=== PATIENT | female | born 1970 | race Caucasian/White ===

== ENCOUNTER 2021-01-02 01:43 | Emergency (ER) | payer MEDICAID, SELFPAY ==
[2021-01-02 01:57] VITALS: BP 126/80; BP 130/84; PULSE 100; PULSE 95; RESP 18; TEMP 36.8; O2SAT 96; O2SAT 98; BMI 21.1
--- NOTE | 2021-01-02 04:40 | ED.GENADULT ---
HPI - General Adult General Chief complaint: General Medical Stated complaint: mentally health eval Time Seen by Provider: 01/02/21 02:07 History of Present Illness HPI narrative: Patient is 50 years old with a history of having back pain in the past. History of sciatica. Patient texted her friend telling her that she needs to talk to her. Her friend was concerned about her and called EMS. EMS on arrival sent the patient to the emergency department. To the paramedics patient denies any suicidal homicidal ideation. Denies to the providers that she has any homicidal suicidal ideations. She has pain that is going down her left leg. Patient denies any history of alcohol abuse. Patient denies any history of cocaine or heroin abuse. Patient claims the pain is worse with movement. It is sharp in nature. It goes down to the knees. It is similar to previous bouts of back pain she had. Patient denies any incontinence. Related Data Allergies Allergy/AdvReac Type Severity Reaction Status Date / Time No Known Allergies Allergy Unverified 03/11/20 14:58 Review of Systems Review of Systems: No fever no chills no bowel urinary incontinence no focal weakness Yes all other systems are reviewed and are negative [facility] Past Medical History Attestation statement: The following information was validated with the patient. Medical History Anxiety Depression Hypotension Social History Social History Advance Directives: No Patient : No Physical Exam Vital Signs: Vital Signs: Last Vital Signs Temp 98.3 F 01/02/21 01:57 Pulse 95 01/02/21 01:57 Resp 18 01/02/21 01:57 BP 126/80 01/02/21 01:57 Pulse Ox 98 01/02/21 01:57 Body Mass Index 21.1 Appearance: Alert. Oriented X3. No acute distress. Eyes: Pupils equal, round and reactive to light. ENT: Pharynx normal. Neck: Normal inspection. Neck supple. No lymph nodes noted. No crepitus CVS: Normal heart rate and rhythm. Pulses normal. Normal S1 and S2 Respiratory: No respiratory distress. Breath sounds normal. No Wheezing. No rales Abdomen: Soft and nontender. No rigidity. No distention. good BS x4 Skin: Skin warm and dry. Normal skin color. Normal skin turgor. Extremities: No lower extremity edema. Neurovascular intact to all extremities. No Lacerations. No Rash. There is good sensation in bilateral lower extremity. Negative straight leg raise test. Reflexes are equal at the patella bilaterally. Sensation in the lower extremity intact. Pulse 2 + at dorsalis pedis. Neuro: Oriented X 3. No motor deficit. No sensory deficit. Moving all extermities. No slurred speech Medical Decision Making MDM Narrative Medical decision making narrative: Patient had back pain excruciating at 1st patient claims she is unable to ambulate. She has no bowel urinary incontinence. She has pain associated with the sciatica. Patient denies any suicidal homicidal ideation. We will going to have patient get seen by social work along with physical therapy for further evaluation. However patient did not want to stay. She ambulated and eloped from the emergency department. Discharge Plan Discharge Clinical Impression: Sciatic leg pain Patient Disposition: Elopement Interventions: ED Discharge Assessment Last Done: 01/02/21 03:49 Discharge Date/Time: 01/02/21 03:50
== END 2021-01-02 03:50 | disposition left against medical advice (07) ==
PROVIDERS: Emergency Provider Emergency Medicine Emergency Medical Services
DX: M54.32 Sciatica, left side (principal)
CPT/HCPCS: 99283

== ENCOUNTER 2021-07-15 10:15 | Outpatient (RCR) | payer OTHER, SELFPAY ==
[2021-06-23 15:03] VITALS: BMI 21.1
--- NOTE | 2021-06-23 15:09 | PC.ADMIT ---
Patient admitted to [facility] on 06/23/2021. Patient self referred related to depression, anxiety and agitation. Patient reports history of two suicide attempts. patient denies SI during this assessment. Reviewed patient safety plan and with patient's permission will email copy to her. Patient reports she has stopped all opiate use and alcohol use since 05/05/2021. Patient states she needs [facility] for mental health issues related to her prior substance abuse. Patient states she goes to AA meetings four times a week. Patient reports the AA meetings have been very helpful. Patient reports she has out patient behavioral health services through her therapist, Keturah FULTON and her prescriber, Anne Foster NP. Patient has no history of inpatient psychiatric hospitalization. Patient has been in detox twice, once in 2019 and more recently in 2020 through [facility] in [place], [place]. All medications reconciled with pharmacy and patient.
--- NOTE | 2021-06-23 16:22 | PC.NURSE ---
Case opened in treatment team.
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
--- NOTE | 2021-06-27 11:49 | PC.NURSE ---
Tanja Robledo called and stated she has been having chest pain on and off for a week and thinks it is due to indigestion as she stated the chest pain is relieved by burping. She stated since she has been sober she has increased drinking carbonated beverages including seltzer water. I advised her to call her PCP to review or go to the emergency room to f/u. Patient stated she has slight chest pain currently, no SOB, no diaphoresis. Vidhi Schuler [employer] is aware.
--- NOTE | 2021-06-28 11:06 | HO.PHPPROGNO ---
Subjective Subjective Date of Service: 06/28/21 Reason For Visit: Depression, Anxiety, ADHD Interim History: I evaluated the pt this morning and upon interview she reports she has been adherent on adderall XR 10 mg for her ADHD and venlafaxine 75 mg for her sx of depression. Per pt, since she has quite drinking 7.5 weeks ago her mood has lifted tremendously. Pt is unsure if this is due to sobriety or if her medications are also more effective now that she is sober. Had been drinking 3-5 drinks a night 4-5 nights per week. She is now attending AA, which she finds helpful. Pt reports an incident of chest pain after taking adderall, however believes this was indigestion as it was temporary and has resolved with dietary changes. She also discussed her issues with bruxism and wondered if this is medication induced, however this seems unlikely as she has had this issue all my life, or at least medications are contributory but not the cause. Discussed possibly meeting with dentist to obtain a mouthguard. Pt also feels improvement overall since starting for severe menstrual pain, overall feels her medication regimen is working well. Medication Compliance: Yes Side effects from medications: No Attending Groups: Yes Review of Systems Acute medical concerns: No Medical Review of Systems: unchanged Mental Status Exam Mental Status Exam Narrative: Well-developed, well-nourished female, in NAD.? Appropriate grooming, appropriately dressed.? Sitting upright in chair, fully attentive during interview.? No involuntary movements noted, motor activity calm. Patient Appearance:?Well Groomed and Appropriate Patient Orientation:?Person, Place, Time and Situation Level of Consciousness:?Awake, Appropriate and Alert Patient Behavior:?Appropriate, Cooperative and Good Eye Contact Mood Description:?Depressed Affect Description:?Appropriate, Depressed and Anxious Patient Cognition Impaired:?No Ability to Follow Directions:?Excellent Speech Pattern:?Clear, Appropriate and Coherent Memory Description:?Intact Hallucinations:?None Delusions:?Not Present Thought Process:?Intact, Goal Oriented and Linear Thought Content:?positive for Intact, positive for Goal Oriented, positive for Linear and positive for Logical Depressive Symptoms:?Increased Anxiety, Diff. Making Decisions, Muscle Pain, Loss of Int. in Activity, Feelings of Worthlessness, Hopelessness, Feelings of Guilt, Increased Fatigue and Difficulty Concentrating Judgment and Insight:?Judgment and insight fair but adequate at this time. Diagnostics Vital Signs (24Hr): BMI result Body Mass Index 21.1 Assessment & Plan Assessment & Plan (1) Major depressive disorder, recurrent, moderate: Status: Acute Code(s): F33.1 - Major depressive disorder, recurrent, moderate Assessment and Plan: Pt reports positive benefit on current med regimen for sx of depression, feels stable, denies SI/SIB upon inquiry and says she feels safe. (2) Generalized anxiety disorder: Status: Acute Code(s): F41.1 - Generalized anxiety disorder (3) Alcohol use disorder, severe, in early remission: Status: Acute Code(s): F10.21 - Alcohol dependence, in remission Assessment and Plan: Pt has been sober 7.5 weeks and is attending AA. Denies urges to relapse. (4) Opioid use disorder, severe, in early remission: Status: Acute Code(s): F11.21 - Opioid dependence, in remission (5) ADHD: Status: Acute Code(s): F90.9 - Attention-deficit hyperactivity disorder, unspecified type Assessment and Plan: Pt has re-trialed Adderall XR 10 mg with her outpt provider and reports positive benefit. Continues to report issues with bruxism at night but does not appear to be side effect of adderall, as she had this issue prior to starting adderall. Assessment and Plan: Pt reports positive benefit on current med regimen and has been adherent with medications and appointments with her outpt psych provider. Does not want med changes. Does not need refills. 1. Continue current medications as prescribed by outpatient provider. 2. Continue with current PHP treatment plan. 3. Follow-up as per protocol. Certification I certify that partial hospital treatment is medically necessary due to the symptoms and problems resulting from the patient's mental illness and the failure to treat the patient at the partial hospital level of care would likely result in the patient requiring inpatient psychiatric care which could not be prevented at a less intensive level of care. I spent minutes with the patient and/or on the patient floor today, greater than?50% of which was spent counseling/coordinating care. Discharge Plan Discharge Attending provider: Mauro Shea Medications: No Action dextroamphetamine-amphetamine [Adderall XR] 10 mg capsule,extended release 24hr 10 mg PO DAILY RF: 0 alendronate 70 mg tablet 70 mg PO QWEEK RF: 0 aripiprazole 2 mg tablet 2 mg PO DAILY RF: 0 ferrous sulfate 325 mg (65 mg iron) tablet 325 mg PO 2XW RF: 0 gabapentin 300 mg capsule 600 mg PO BID RF: 0 norethindrone ac-eth estradiol [07/14 (21)] 1-20 mg-mcg tablet 1 tab PO DAILY RF: 0 lidocaine 5 % adhesive patch,medicated 1 patch topical DAILY RF: 0 lorazepam 0.5 mg tablet 1.5 tab PO BID PRN (Reason: Anxiety) RF: 0 tizanidine 4 mg tablet 4 mg PO TID PRN (Reason: Muscle Pain) RF: 0 venlafaxine 75 mg capsule,extended release 24hr 75 mg PO DAILY RF: 0
--- NOTE | 2021-07-05 09:47 | PC.NURSE ---
Patient called out sick today stating she has a migraine headache. Plans on returning to the program tomorrow.
--- NOTE | 2021-07-07 16:21 | HO.PHPPROGNO ---
Subjective Subjective Date of Service: 07/07/21 Reason For Visit: Depression, Anxiety, ADHD Guardianship: No Medical Problems Affecting Mental Status: No Interim History: Client describes her mood as ?pretty good ?. Reports continues with symptoms of depression and anxiety, although she feels she is slowly improving. No thoughts of harm to self or others, no safety concern at this time. Medication Compliance: Yes Side effects from medications: No Attending Groups: Yes Review of Systems Acute medical concerns: No Medical Review of Systems: unchanged Review of Systems Review of Systems Yes all other systems are reviewed and are negative Constitutional: Reports no additional constitutional complaints Mental Status Exam Mental Status Exam Narrative: Well-nourished, well-developed female, in NAD. Well groomed, appropriately dressed. No evidence of any type of intoxication or withdrawal symptoms, cravings noted or reported. No involuntary movements, no tics or tremors, motor activity calm. Client sitting up, fully attentive during encounter. Patient Appearance: Well Grooomed and Appropriate Patient Orientation: Person, Place, Time and Situation Level of Consciousness: Awake, Appropriate and Alert Patient Behavior: Appropriate, Cooperative and Good Eye Contact Mood Description: Appropriate, Depressed and Anxious Affect Description: Appropriate, Depressed and Anxious Patient Cognition Impaired: No Ability to Follow Directions: Excellent Speech Pattern: Clear, Appropriate and Spontaneous Speech Memory Description: Intact Hallucinations: None Delusions: Not Present Thought Process: Intact, Goal Oriented and Linear Thought Content: positive for Intact, positive for Goal Oriented, positive for Linear and positive for Logical Depressive Symptoms: Increased Anxiety, Diff. Making Decisions, Loss of Int. in Activity, Feelings of Worthlessness, Isolating-Friends/Family, Feelings of Guilt and Difficulty Concentrating Judgement: Fair Diagnostics Vital Signs (24Hr): BMI result Body Mass Index 21.1 Assessment & Plan Assessment & Plan (1) Major depressive disorder, recurrent, moderate: Status: Acute Code(s): F33.1 - Major depressive disorder, recurrent, moderate Assessment and Plan: Client reports she continues with some anxiety and depressive symptoms, although she does feel she is making improvement. She requested and received a script for calcium for 90 days, through her insurance, as she has recently stopped taking Fosamax per her MD instructions. She states that her primary care provider instructed her to start taking calcium OTC. It was explained to her that her her sure and provider may not cover script, as she can purchase this [id number]. She stated that she understood. Education for this medication was provided, including timing, take with meals, potential interactions, etc.. She denies any thoughts of harm to self or others at this time no safety concern. She reports that she feels the venlafaxine is helping. In review of her medications, she states that she no longer takes Abilify, as she did not find it effective. Otherwise she reports that her medications appear to be helping, and that the combination of medication and groups are helping her to learn how to better manage her depressive and anxiety symptoms. (2) Generalized anxiety disorder: Status: Acute Code(s): F41.1 - Generalized anxiety disorder (3) Alcohol use disorder, severe, in early remission: Status: Acute Code(s): F10.21 - Alcohol dependence, in remission Assessment and Plan: Client remains abstinent from alcohol at this time. Denies cravings at this time. (4) Opioid use disorder, severe, in early remission: Status: Acute Code(s): F11.21 - Opioid dependence, in remission (5) ADHD: Status: Acute Code(s): F90.9 - Attention-deficit hyperactivity disorder, unspecified type Assessment and Plan: Client had recently been restarted on Adderall in order to help with ADHD symptoms. She reports she is finding this helpful at this time. States she is more able to focus. Assessment and Plan: 1. Calcium carbonate 500 mg b.i.d., 90 day supply, sent to pharmacy. 2. Continue with current [facility] plan of care. 3. Follow-up as per protocol. Patient educated on: diagnosis, medication risk/benefits, substance abuse and therapeutic strategies Informed Consent: understands Reason for contiued partial hosp. stay Substantial Risk for: inability to function and med/psych decompensation Certification I certify that partial hospital treatment is medically necessary due to the symptoms and problems resulting from the patient's mental illness and the failure to treat the patient at the partial hospital level of care would likely result in the patient requiring inpatient psychiatric care which could not be prevented at a less intensive level of care. I spent minutes with the patient and/or on the patient floor today, greater than?50% of which was spent counseling/coordinating care. Discharge Plan Discharge Attending provider: Mauro Shea Medications: New calcium carbonate [Calcium 500] 500 mg calcium (1,250 mg) tablet,chewable 500 mg PO BID 90 Days Qty: 180 RF: 0 Discontinued aripiprazole 2 mg tablet 2 mg PO DAILY RF: 0 No Action dextroamphetamine-amphetamine [Adderall XR] 10 mg capsule,extended release 24hr 10 mg PO DAILY RF: 0 alendronate 70 mg tablet 70 mg PO QWEEK RF: 0 ferrous sulfate 325 mg (65 mg iron) tablet 325 mg PO 2XW RF: 0 gabapentin 300 mg capsule 600 mg PO BID RF: 0 norethindrone ac-eth estradiol [07/14 ()] 1-20 mg-mcg tablet 1 tab PO DAILY RF: 0 lidocaine 5 % adhesive patch,medicated 1 patch topical DAILY RF: 0 lorazepam 0.5 mg tablet 1.5 tab PO BID PRN (Reason: Anxiety) RF: 0 tizanidine 4 mg tablet 4 mg PO TID PRN (Reason: Muscle Pain) RF: 0 venlafaxine 75 mg capsule,extended release 24hr 75 mg PO DAILY RF: 0 Telehealth Telehealth Location of provider rendering services: practice address Location of patient: address on file Patient Identification confirmed using: Name, : Yes Telehealth method: video Patient verbally consented to treatment: Yes Patient verbally consented to billing insurance company: Yes Patient informed of any privacy concerns related to visit: Yes Time spent with patient (mins): 15
--- NOTE | 2021-07-13 15:52 | HO.PHPPROGNO ---
Subjective Subjective Date of Service: 07/13/21 Reason For Visit: Depression, Anxiety, ADHD Guardianship: No Medical Problems Affecting Mental Status: No Interim History: Lisa reports ?I a.m. doing well ?. States that she feels her mood has lifted, and that she feels much better. She feels stable for discharge later this week. No thoughts of harm to self or others, no safety concern. Reports she has remained abstinent from alcohol, and that she believes this has also helped lift her mood. Medication Compliance: Yes Side effects from medications: No Attending Groups: Yes Review of Systems Acute medical concerns: No Medical Review of Systems: unchanged Review of Systems Review of Systems Yes all other systems are reviewed and are negative Constitutional: Reports no additional constitutional complaints Mental Status Exam Mental Status Exam Narrative: Well-nourished, well-developed female, in NAD. No involuntary movements, no tics or tremors, motor activity calm. Patient Appearance: Well Grooomed and Appropriate Patient Orientation: Person, Place, Time and Situation Level of Consciousness: Awake, Appropriate and Alert Patient Behavior: Appropriate, Cooperative and Good Eye Contact Mood Description: Appropriate Affect Description: Appropriate Patient Cognition Impaired: No Ability to Follow Directions: Excellent Speech Pattern: Clear, Appropriate, Spontaneous Speech and Coherent Memory Description: Intact Hallucinations: None Delusions: Not Present Thought Process: Intact, Goal Oriented and Linear Thought Content: positive for Intact, positive for Goal Oriented, positive for Linear and positive for Logical Depressive Symptoms: Difficulty Concentrating Judgement: Good Diagnostics Vital Signs (24Hr): BMI result Body Mass Index 21.1 Assessment & Plan Assessment & Plan (1) Major depressive disorder, recurrent, moderate: Status: Acute Code(s): F33.1 - Major depressive disorder, recurrent, moderate Assessment and Plan: Lisa reports ?I a.m. doing well ?. States that she feels her mood has lifted, and that she feels much better. She feels stable for discharge later this week. No thoughts of harm to self or others, no safety concern. Reports she has remained abstinent from alcohol, and that she believes this has also helped lift her mood. (2) Generalized anxiety disorder: Status: Acute Code(s): F41.1 - Generalized anxiety disorder (3) Alcohol use disorder, severe, in early remission: Status: Acute Code(s): F10.21 - Alcohol dependence, in remission (4) ADHD: Status: Acute Code(s): F90.9 - Attention-deficit hyperactivity disorder, unspecified type Assessment and Plan: Client reports she is in process of titrating down lorazepam with outpatient provider. Questions whether or not she should be started on medication for ADHD. She had taken Adderall briefly, but stopped due to its side effects. A discussion was had, including medications such as Wellbutrin or Strattera. Discussed possibility of waiting for the time being as she is in process of titrating off lorazepam. Suggested that she wait until her body stabilizes, especially as she is also in early sobriety. She was in agreement with this. Assessment and Plan: 1. Continue with current medications as prescribed. 2. Client appears stable for discharge after this week. 3. Follow-up with outpatient providers going forward. Patient educated on: diagnosis, medication risk/benefits, substance abuse and therapeutic strategies Informed Consent: understands Reason for contiued partial hosp. stay Substantial Risk for: stable for discharge Certification I certify that partial hospital treatment is medically necessary due to the symptoms and problems resulting from the patient's mental illness and the failure to treat the patient at the partial hospital level of care would likely result in the patient requiring inpatient psychiatric care which could not be prevented at a less intensive level of care. I spent minutes with the patient and/or on the patient floor today, greater than?50% of which was spent counseling/coordinating care. Discharge Plan Discharge Attending provider: Mauro Shea Medications: New calcium carbonate [Calcium 500] 500 mg calcium (1,250 mg) tablet,chewable 500 mg PO BID 90 Days Qty: 180 RF: 0 Discontinued dextroamphetamine-amphetamine [Adderall XR] 10 mg capsule,extended release 24hr 10 mg PO DAILY RF: 0 aripiprazole 2 mg tablet 2 mg PO DAILY RF: 0 No Action alendronate 70 mg tablet 70 mg PO QWEEK RF: 0 ferrous sulfate 325 mg (65 mg iron) tablet 325 mg PO 2XW RF: 0 gabapentin 300 mg capsule 600 mg PO BID RF: 0 norethindrone ac-eth estradiol [Junel 07/14 ()] 1-20 mg-mcg tablet 1 tab PO DAILY RF: 0 lidocaine 5 % adhesive patch,medicated 1 patch topical DAILY RF: 0 lorazepam 0.5 mg tablet 1.5 tab PO BID PRN (Reason: Anxiety) RF: 0 tizanidine 4 mg tablet 4 mg PO TID PRN (Reason: Muscle Pain) RF: 0 venlafaxine 75 mg capsule,extended release 24hr 75 mg PO DAILY RF: 0 Stand Alone Forms: Patient Portal Discharge page Telehealth Telehealth Location of provider rendering services: practice address Location of patient: address on file Patient Identification confirmed using: Name, : Yes Telehealth method: video Patient verbally consented to treatment: Yes Patient verbally consented to billing insurance company: Yes Patient informed of any privacy concerns related to visit: Yes Time spent with patient (mins): 15
--- NOTE | 2021-07-13 16:07 | PC.NURSE ---
After speaking with pt, and at her request, I called [facility] and then emailed them a referral form with supporting documentation for pt to obtain a refinery operator vapor recovery unit. I spoke to Kyra at [facility] who said she does not believe there is a long wait for a refinery operator vapor recovery unit. I also left a message for Jeniffer Brown, recovery coaching management trainee program stores ([phone]).
--- NOTE | 2021-07-15 12:22 | PC.NURSE ---
Patient scheduled to discharge from the program today. Patient denied SI or any safety issues. Feels she is doing well and feels ready to discharge. Reviewed patient mediations with patient. Patient taking medications as prescribed. Stated she is no longer taking Tizantidine and is also on Venlafaxine 150 mg daily and is tapering down on Lorazepam. See medication list.
--- NOTE | 2021-07-15 14:07 | PC.NURSE ---
Spoke to patient about medicated assisted treatment at [place] [facility] and asked if she was interested. Patient interested and was provided the number to call and make an appointment.
--- NOTE | 2021-07-15 17:33 | PC.NURSE ---
I called and left a message for pt's therapist, Keturah Foster, [facility] ([phone]), letting her know about pt's successful discharge from [facility] today.
== END 2021-07-18 07:32 | disposition home or self-care (01) ==
LOC: HO.PHPA 10:15
PROVIDERS: Visit Provider Psychiatry & Neurology Psychiatry
DX: F33.1 Major depressive disorder, recurrent, moderate (principal); F41.1 Generalized anxiety disorder; F90.9 Attention-deficit hyperactivity disorder, unspecified type; F10.21 Alcohol dependence, in remission; F11.21 Opioid dependence, in remission; Z79.899 Other long term (current) drug therapy
CPT/HCPCS: 90791; 90853

== ENCOUNTER 2022-02-07 23:33 | Emergency (ER) | payer MEDICAID, SELFPAY ==
[2022-02-07 23:38] VITALS: BP 125/90; BP 130/60; PULSE 85; PULSE 86; RESP 18; TEMP 37.1; O2SAT 97; BMI 19.5
--- NOTE | 2022-02-07 23:39 | ED_ITS ---
HPI - Back Pain/Injury General Chief Complaint: Back Pain/Injury Stated Complaint: Back Pain Time Seen by Provider: 02/07/22 23:38 Source: patient Mode of arrival: ambulatory Limitations: no limitations History of Present Illness HPI Narrative: Patient with history of chronic back pain with sciatica head MRI 2 days ago report still pending comes here for pain in the left thigh area similar to that in the past for last 1 week getting worse no leg weakness no bladder or bowel involvement no recent injury Related Data Home Medications Medication Instructions Recorded Confirmed ferrous sulfate 325 mg (65 mg 325 mg PO 2XW 06/23/21 06/23/21 iron) tablet gabapentin 300 mg capsule 600 mg PO BID 06/23/21 06/23/21 lidocaine 5 % topical patch 1 patch topical DAILY 06/23/21 06/23/21 lorazepam 0.5 mg tablet 0.5 tab PO BID PRN Anxiety 06/23/21 07/14/21 norethindrone acetate 1 mg-ethinyl 1 tab PO DAILY 06/23/21 06/23/21 estradiol 20 mcg tablet (Junel) venlafaxine 75 mg capsule,extended 150 mg PO DAILY 06/23/21 07/14/21 release 24 hr cholecalciferol (vitamin D3) 50 50 mcg PO DAILY 07/14/21 07/14/21 mcg (2,000 unit) capsule (Vitamin D3) Previous Rx's Medication Instructions Recorded calcium carbonate 500 mg calcium 500 mg PO BID 90 days #180 tabs 07/07/21 (1,250 mg) chewable tablet (Calcium 500) tramadol 50 mg tablet 50 mg PO Q6H PRN pain #20 tabs 02/08/22 Allergies Allergy/AdvReac Type Severity Reaction Status Date / Time No Known Allergies Allergy Verified 02/07/22 23:41 Review of Systems Review of Systems: Yes all other systems are reviewed and are negative [facility] Past Medical History Medical History Anxiety Depression Fibroids History of iron deficiency Hypercholesteremia Hypotension Migraine Osteoporosis Sensorineural hearing loss, unspecified Surgical History History of endometrial ablation Hx of LASIK Social History Social History Household Members: None Household Members Other:: N/A Patient Tobacco Use Status: Former Tobacco user Tobacco use type: Cigarette Physical Exam Vital Signs: Vital Signs: Last Vital Signs Temp 98.6 F 02/08/22 00:00 Pulse 80 02/08/22 00:00 Resp 18 02/08/22 00:19 BP 105/70 02/08/22 00:00 Pulse Ox 97 02/08/22 00:00 O2 Del Method 02/08/22 00:00 BMI result Body Mass Index 19.5 Appearance: Alert. Oriented X3. No acute distress. ENT: Pharynx normal. Oral Mucosa moist Neck: Normal inspection. Neck supple. CVS: Normal heart rate and rhythm. Pulses normal. Respiratory: No respiratory distress. Equal air entry bilateral, no wheezing/rales/rhonchi Skin: Skin warm and dry. Normal skin color. Normal skin turgor. Extremities: No lower extremity edema. Back: Diffuse tenderness L4-L5 area SLR positive at 45 degrees on the left side neurovascular intact Neuro: Oriented X 3. No motor deficit Discharge Plan Discharge Clinical Impression: Sciatica Patient Disposition: Home, Self-Care Instructions: Sciatica (ED) Additional Instructions: Continue muscle relaxant as prescribed by PCP Apply ice Tramadol for severe pain Follow-up with your recruiting specialist Prescriptions: New tramadol 50 mg tablet 50 mg PO Q6H PRN (Reason: pain) Qty: 20 0RF No Action ferrous sulfate 325 mg (65 mg iron) tablet 325 mg PO 2XW Rx Instructions: Take on Sunday and Sunday. Take with Vitamin C gabapentin 300 mg capsule 600 mg PO BID Rx Instructions: Take two 300 mg tabs norethindrone ac-eth estradiol [07/14 (21)] 1-20 mg-mcg tablet 1 tab PO DAILY lidocaine 5 % adhesive patch,medicated 1 patch topical DAILY lorazepam 0.5 mg tablet 0.5 tab PO BID PRN (Reason: Anxiety) Rx Instructions: Patient stated she is tapering off Lorazepam. Currently taking 0.5 mg BID. When finished with that prescription she will start taking 0.5 mg Daily. venlafaxine 75 mg capsule,extended release 24hr 150 mg PO DAILY Rx Instructions: Patient stated she takes 2 tabs daily for a total dose of 150 mg daily. calcium carbonate [Calcium 500] 500 mg calcium (1,250 mg) tablet,chewable 500 mg PO BID 90 Days Qty: 180 0RF cholecalciferol (vitamin D3) [Vitamin D3] 50 mcg (2,000 unit) Capsule 50 mcg PO DAILY
[2022-02-08] VITALS: BP 105/70; PULSE 80; TEMP 37; O2SAT 97
[2022-02-08 00:19] VITALS: RESP 18
[2022-02-08] MEDS: Morphine Sulfate 4 MG/ML CARTRIDGE IM ×2 (00:19→01:22)
[2022-02-08 01:22] VITALS: RESP 20
[2022-02-08] MEDS: dexAMETHasone sod phosphate 4 MG/ML VIAL 8 MG IM (01:22)
== END 2022-02-08 02:48 | disposition home or self-care (01) ==
PROVIDERS: Emergency Provider Internal Medicine; PCP Nurse Practitioner Family
DX: M54.42 Lumbago with sciatica, left side (principal)
CPT/HCPCS: 96372; 99283; 99284; J1100; J2270

== ENCOUNTER 2022-02-09 11:50 | Emergency (ER) | payer MEDICAID, SELFPAY ==
[2022-02-09 12:06] VITALS: BP 104/56; BP 160/84; PULSE 69; PULSE 88; RESP 20; TEMP 37.3; O2SAT 97; O2SAT 98; BMI 19.5
--- NOTE | 2022-02-09 12:18 | ED.GENADULT ---
HPI - General Adult General Chief complaint: General Medical Stated complaint: LOW BACK PAIN Time Seen by Provider: 02/09/22 14:24 Source: patient Mode of arrival: ambulatory Limitations: no limitations History of Present Illness HPI narrative: 51-year-old female with history of lumbar disc herniation presents to ED for continuous back pain. Patient denies any urinary/bowel incontinence. Patient states having pain for couple of days was seen here and prescribed tramadol still having pain. Patient states primary care provider informed of this pain back pain and patient taking Motrin with tramadol and not helping. Patient denies any dysuria, hematuria, abdominal pain, nausea, or vomiting. Patient states she had MRI this past Sunday and is presently follow-up with spinal surgery who she spoke to stating she might need surgery down the line after he reviewed MRI. Patient denies any active IV drug use or immunocompromise diseases. Patient denies any recent trauma. Related Data Home Medications Medication Instructions Recorded Confirmed ferrous sulfate 325 mg (65 mg 325 mg PO 2XW 06/23/21 06/23/21 iron) tablet gabapentin 300 mg capsule 600 mg PO BID 06/23/21 06/23/21 lidocaine 5 % topical patch 1 patch topical DAILY 06/23/21 06/23/21 lorazepam 0.5 mg tablet 0.5 tab PO BID PRN Anxiety 06/23/21 07/14/21 norethindrone acetate 1 mg-ethinyl 1 tab PO DAILY 06/23/21 06/23/21 estradiol 20 mcg tablet (Junel) venlafaxine 75 mg capsule,extended 150 mg PO DAILY 06/23/21 07/14/21 release 24 hr cholecalciferol (vitamin D3) 50 50 mcg PO DAILY 07/14/21 07/14/21 mcg (2,000 unit) capsule (Vitamin D3) Previous Rx's Medication Instructions Recorded calcium carbonate 500 mg calcium 500 mg PO BID 90 days #180 tabs 07/07/21 (1,250 mg) chewable tablet (Calcium 500) tramadol 50 mg tablet 50 - 100 mg PO Q4H PRN pain #20 02/08/22 tabs tramadol 50 mg tablet 50 - 100 mg PO Q4H PRN pain #20 02/08/22 tabs cyclobenzaprine 10 mg tablet 10 mg PO TID PRN muscle spasm 5 02/09/22 days #15 tabs ketorolac 10 mg tablet 10 mg PO QID 5 days #20 tabs 02/09/22 prednisone 20 mg tablet 60 mg PO DAILY 5 days #15 tabs 02/09/22 Allergies Allergy/AdvReac Type Severity Reaction Status Date / Time No Known Allergies Allergy Verified 02/07/22 23:41 Review of Systems Review of Systems: Chronic back pain exacerbation Yes all other systems are reviewed and are negative [facility] Past Medical History Medical History Anxiety Depression Fibroids History of iron deficiency Hypercholesteremia Hypotension Migraine Osteoporosis Sensorineural hearing loss, unspecified Surgical History History of endometrial ablation Hx of LASIK Social History Social History Household Members: None Household Members Other:: N/A Patient Tobacco Use Status: Former Tobacco user Tobacco use type: Cigarette Advance Directives: No Advance Directives Information Provided: No Physical Exam ED Vital Signs: Vital Signs - 24 hr 02/09/22 12:06 Temperature 99.1 F Pulse Rate 69 Respiratory Rate 20 Blood Pressure 104/56 L Pulse Oximetry 97 Oxygen Delivery Method Room Air BMI result Body Mass Index 19.5 Const General: cooperative, healthy appearing, comfortable, no acute distress, well developed, alert, awake and Physically active Orientation/consciousness: patient oriented x3 HENMT Head: Yes normal to inspection, Yes No palpable skull fracture present, Yes normocephalic, Yes atraumatic and No abrasion Eyes General: appearance normal, both eyes and all related structures Neck Neck: Yes normal visual inspection, Yes full ROM, Yes no lymphadenopathy, Yes no meningeal signs, Yes trachea midline, Yes supple, No anterior neck swelling and No tender Chest Chest palpation & inspection: normal inspection of the chest and normal palpation of entire chest wall Resp Effort & Inspection: normal respiratory effort and able to speak in complete sentences Auscultation: clear to auscultation bilaterally Cardio Jugular venous distension: no JVD Heart sounds: S1 normal heart sound present and S2 normal heart sound present GI Inspection: Yes normal to inspection and No abdominal wall ecchymosis Palpation (GI): Soft to palpation, not firm, nontender, no guarding and not rigid General: No CVA tenderness and Yes no CVA tenderness Back/Spine/Pelvis Back: no CVA tenderness, No CVA tenderness and back tenderness (Lumbar spine tenderness) Skin General skin exam: no rashes or lesions noted and elasticity normal Neuro General: patient oriented x3, gait normal, no meningeal signs and CN's II-XI intact bilaterally Cranial nerves: Yes CN's II-XII intact bilaterally Extrem Other: Complete range of motion of lower extremity General: Yes normal to inspection and Yes full ROM Psych Appearance: grossly normal, well kempt and not disheveled Course Course Course Narrative: Presently no indication for new imaging. Patient denies any recent trauma. Not suspecting cauda equine or epidural abscess. Pain control. Reevaluation(s) Reevaluation #1: Patient feels better after receiving Toradol, osycodone, and steroids. Patient will follow-up with this spine surgeon and PCP. Patient informed not to take any other NSAIDs since she was prescribed Toradol. Patient prescribed steroids also. patient walked to bathroom back and forth. Patient's spinal surgeon office was called inquiring about MRI results but they could not be reached. Presently history physical exam does not indicate epidural abscess or cauda equina syndrome. Patient is safe for discharge. Patient walk around the ER. Gait normal Time: 22:34 Medical Decision Making MDM Narrative Medical decision making narrative: Lumbar disc herniation Discharge Plan Discharge Clinical Impression: Herniated intervertebral disc of lumbar spine Patient Disposition: Home, Self-Care Instructions: Lumbar Disc Herniation (ED) Additional Instructions: Stop taking any other NSAIDs. You will be discharged with Toradol. You also be discharged with steroids. Return to the ED immediately for any urinary/bowel incontinence, paralysis of lower extremities, inability to walk, abdominal pain, dysuria, hematuria, flank pain, fever, chills, nausea, vomiting, or any other concerning symptoms. Do not take tramadol at the same time with muscle relaxer. Please follow immediately with your primary care or spine surgeon as soon as possible. Prescriptions: New ketorolac 10 mg tablet 10 mg PO QID 5 Days Qty: 20 0RF Rx Instructions: Patient received 30mg IM toradol in the ED prednisone 20 mg tablet 60 mg PO DAILY 5 Days Qty: 15 0RF cyclobenzaprine 10 mg tablet 10 mg PO TID PRN (Reason: muscle spasm) 5 Days Qty: 15 0RF Rx Instructions: side effect is drowsiness. Do not at work or while driving. No Action ferrous sulfate 325 mg (65 mg iron) tablet 325 mg PO 2XW Rx Instructions: Take on Sunday and Sunday. Take with Vitamin C gabapentin 300 mg capsule 600 mg PO BID Rx Instructions: Take two 300 mg tabs norethindrone ac-eth estradiol [07/14 (21)] 1-20 mg-mcg tablet 1 tab PO DAILY lidocaine 5 % adhesive patch,medicated 1 patch topical DAILY lorazepam 0.5 mg tablet 0.5 tab PO BID PRN (Reason: Anxiety) Rx Instructions: Patient stated she is tapering off Lorazepam. Currently taking 0.5 mg BID. When finished with that prescription she will start taking 0.5 mg Daily. venlafaxine 75 mg capsule,extended release 24hr 150 mg PO DAILY Rx Instructions: Patient stated she takes 2 tabs daily for a total dose of 150 mg daily. calcium carbonate [Calcium 500] 500 mg calcium (1,250 mg) tablet,chewable 500 mg PO BID 90 Days Qty: 180 0RF cholecalciferol (vitamin D3) [Vitamin D3] 50 mcg (2,000 unit) Capsule 50 mcg PO DAILY tramadol 50 mg tablet 50 - 100 mg PO Q4H PRN (Reason: pain) Qty: 20 0RF tramadol 50 mg tablet 50 - 100 mg PO Q4H PRN (Reason: pain) Qty: 20 0RF Stand Alone Forms: Work/School Release Interventions: ED Discharge Assessment Last Done: 02/09/22 15:00 Discharge Date/Time: 02/09/22 15:01 Print Language: Omani
[2022-02-09] MEDS: Ketorolac Tromethamine 30 MG/ML VIAL IM (13:00)
[2022-02-09] MEDS: predniSONE 20 MG TABLET 60 MG PO (13:01)
[2022-02-09] MEDS: oxyCODONE HCl Immed Release 5 MG TABLET PO (13:01)
== END 2022-02-09 15:01 | disposition home or self-care (01) ==
PROVIDERS: Emergency Provider Emergency Medicine Emergency Medical Services; PCP Nurse Practitioner Family
DX: M51.26 Other intervertebral disc displacement, lumbar region (principal); M54.50 Low back pain, unspecified
CPT/HCPCS: 96372; 99283; 99284; J1885

== ENCOUNTER 2025-06-08 04:57 | Emergency (ER) | payer OTHER, SELFPAY ==
--- OUTSIDE RECORDS SUMMARY | 2024-09-15 04:15 | XMS_ITS ---
Author Organization [facility] [place] Address [address] [facility] [place] [address] Care Team Providers Care Manager Construction Name Role Phone Tess CONRAD, Quinn Primary Care Provider Unava lillie Joaquin, Laina Unavailable [phone] Stack Encounters Encounter Location Date Provider Diagnosis [facility] [address] [facility] [place] [place] [address] 09/15/2024 Laina Joaquin Plan Of Treatment No Information Progress Notes * Antonio ROJASRitaOB: [birth year] (54 yo F)Acc No.[id number]:09/15/2024 Patient: Olga WATERMAN Provider: Faizan Joaquin DPM :1970 A ge:53 Y S ex:Female Date:09/15/2024 Address:[address] [place], [place] [address]Jenn [id number] Pcp:Quinn Pulido MD Subjective: * Chief Complaints: * [address] Stack[address] * Medical History: Objective: * Vitals: Assessment: Plan: * Treatment: * Images: * The named appointment provid er may or may not be the originator of this progress note, and it is not deemed complete until electronically signed by the appointment provider. Sign off status: Pending * Provider: Faizan Joaquin DPM Date: 0 09/15/2024 Generated for Printi ng/Faxing/eTransmitting on: 08/09/2024 06:06 AM EST
--- OUTSIDE RECORDS SUMMARY | 2024-09-22 04:15 | XMS_ITS ---
Author Organization [facility] [place] Address [address] [place] [address] Care Team Providers Care Nurse Unit Manager Name Role Phone Tess CONRAD, Quinn Primary Care Provider Laina Callahan [phone] Encounters Encounter Location Date Provider Diagnosis [facility] [address] [facility] [place] [address] 09/22/2024 Laina Joaquin Plan Of Treatment No Information Progress Notes * Antonio ROJASRitaOB: [birth year] (54 yo F)Acc No.[id number]:09/22/2024 Patient: Olga WATERMAN Provider: Faizan Joaquin DPM :1970 A ge:53 Y S ex:Female Date:09/22/2024 Address:[address] [place] [address] Jenn [place] [id number] Pcp:Quinn Pulido MD Subjective: * Chief Complaints: * * Medical History: Objective: * Vitals: Assessment: Plan: * Treatment: * Images: * The named appointment provid er may or may not be the originator of this progress note, and it is not deemed complete until electronically signed by the appointment provider. Sign off status: Pending * Provider: Faizan Joaquin DPM Date: 0 09/22/2024 Generated for Janyi ng/Faradhag/eTransmitting on: 1 08/09/2024 06:07 AM EST
[2025-06-08 05:04] VITALS: BP 108/45; PULSE 68; RESP 16; TEMP 36.4; O2SAT 97
[2025-06-08 05:08] VITALS: BP 140/90; PULSE 68; O2SAT 98; BMI 23.7
--- NOTE | 2025-06-08 05:25 | PC.NURSE ---
Pt JORDAN from home c/o bladder pain. Pt states she woke up this morning feeling pain in her bladder and was unable to void. Pt states, I only remember waking up on the bathroom floor but denies any headstrike. Bladder scan shows no urine. 20 g IV in left hand from EMS.
--- OUTSIDE RECORDS SUMMARY | 2025-06-08 06:06 | XMS_ITS | Encounter Summary ---
Author Organization [facility] Address [address] [place] [phone] Phone Care Team Providers Care Insurance Coder Name Role Phone Kathie Novak NP Primary Care Provide r Reason for Referral * MRI/CAT Scan - Closed Specialty Diagnoses / Procedures Referred By Shay wing Referred To Contact Radiology Diagnoses Sensorineural hearing loss, bilateral Procedures MRI Brain Rylan Cruz MD Phone: tel: fax: [email or web address] Referral ID Status Reason Start Date Expiration Date Visits Re quested Visits Authorized [id number] Closed 05/19/2020 05/19/2021 1 1 Encounter Details Date Type Department Care Team (Latest Contact Info) Description 05/19/2020 Ancillary Orders Virtual Department [address] [place] [id number] Rylan Cruz MD [address] [place] [address] [address] [place] [address] [email or web address] Sensorineural hearing loss, bilateral Social History Tobacco Use Types Packs/Day Years Used Date Smoking Tobacco: Never Assessed Comments Unknown Sex and Gender Information Value Date Recorded Sex Assigned at Not on file Legal Sex Female 10:40 AM EST Gender Identity Female 06/01/2020 11:07 PM EST Sexual Orientation Straight 06/01/2020 11 :07 PM EST documented as of this encounter Plan of Treatment Not on file documented as of this encounter Results * MRI BRAIN WITH AND WITHOUT CONTRAST (06/02/2020 11:28 AM EST) Anatomical Region Laterality Modality Head Magnetic Resonan ce 06/02/2020 12:2 2 PM EST Impressions 06/02/2020 12:28 PM EST No evidence of acoustic neuroma or other significant intracranial pathology. POS - [id number] Narrative 06/02/2020 12:28 PM EST TECHNIQUE: Exam performed on a 1.5 Zahra high-field MRI scanner. Axial T2, T2 FLAIR, T2 GRE, diffusion-weighted imaging with ADC map, and sagittal T1 of the whole brain, thin section axial T1, and 3-D axial high resolution bright fluid through the region of the IACs, followed by post-gadolinium axial T1 of the whole brain and post-gadolinium thin section axial and coronal T1 through the region of the IACs. FINDINGS: There is no evidence of acoustic neuroma. No cerebellopontine angle mass. No evidence of acute ischemia or previous intracranial hemorrhage. Brain parenchyma displays essentially normal curry-white matter signal intensity, distribution, and enhancement characteristics. Ventricles and cerebral sulci are within normal limits in size. Cerebellar tonsils are not ectopic. No discrete orbital lesion identified. No pathologic fluid collections are demonstrated in the mastoid air cells. No gross orbital lesion. Flow-voids appear to be preserved in the major intracranial arteries at the base. Procedure Note Rafael Cisneros MD - 06/02/2020 TECHNIQUE: Exam performed on a 1.5 Zahra high-field MRI scanner. AxialT2, T2 FLAIR, T2 GRE, diffusion-weighted imaging with ADC map, andsagittal T1 of the whole brain, thin section axial T1, and 3-D axial highresolution bright fluid through the region of the IACs, followed bypost-gadolinium axial T1 of the whole brain and post-gadolinium thinsection axial and coronal T1 through the region of the IACs. FINDINGS: There is no evidence of acoustic neuroma. No cerebellopontine angle mass.No evidence of acute ischemia or previous intracranial hemorrhage. Brainparenchyma displays essentially normal curry-white matter signal intensity,distribution, and enhancement characteristics. Ventricles and cerebralsulci are within normal limits in size. Cerebellar tonsils are notectopic. No discrete orbital lesion identified. No pathologic fluidcollections are demonstrated in the mastoid air cells. No gross orbitallesion. Flow-voids appear to be preserved in the major intracranialarteries at the base. IMPRESSION: No evidence of acoustic neuroma or other significant intracranialpathology. POS - [id number] Rylan Cruz MD IMG MR HEAD/NECK Final Re sult documented in this encounter Visit Diagnoses Diagnosis Sensorineural hearing loss, bilateral Sensorineural hearing loss, bilateral documented in this encounter Care Teams Insurance Coder Relationship Specialty Start Date End Date Kathie Novak NP [address] [place] [address] PCP - General Family Medicine 05/27/20 documented as of this encounter Additional Source Comments The information contained in this document represents components of the legal health record. It is not the complete legal health record.[facility]
--- OUTSIDE RECORDS SUMMARY | 2025-06-08 06:06 | XMS_ITS | Encounter Summary ---
Author Organization [facility] Address [address] [place] [phone] Phone Care Team Providers Care Director Post Name Role Phone Kathie Novak NP Primary Care Provide r Encounter Details Date Type Department Care Team (Late st Contact Info) Description 05/19/2020 Procedure Pass [address] [place] [address] Social History Tobacco Use Types Packs/Day Years [...] on file documented as of this encounter Visit Diagnoses Not on filedocumented in this encounter Care Teams Director Post Relationship Specialty Start Date End Date Kathie Novak NP [address] [place] [address] [place] [address] PCP - General Family Medicine 05/27/20 documented as of this encounter Additional Source Comments The information contained in this document represents components of the legal health record. It is not the complete legal health record.[facility]
--- OUTSIDE RECORDS SUMMARY | 2025-06-08 06:07 | XMS_ITS | Data Portability ---
Author Organization [place] - [facility] Address [address] [place] [phone] Care Team Providers Care Consular Officer Name Role Phone [facility] Primary Care Pro vider Assessment Encounter Date Assessment Date Assessment LastModified by Organization Details LastModified Time 01/01/2021 01/01/2021 Overview/History : 50 y/o F with PMHx sig for depression, anxiety, and [place], new to , who presents w/ c/o stabbing back pain. Patient reports left sided back/buttock pain started about 6 weeks ago and has been barely tolerable with Ibuprofen 800 mg. She reports worsening pain recently and now pain radiates down her left leg. She reports an old injury and has had 2 flare ups of sciatica in the past due to this. She states that usually it resolves with ibuprofen and time but pain is getting worse. Denies any new injury, heavy lifting, or twisting. She tried seeing a chiropractor 3 times and states it worsened after the last visit. Pain is worsened with certain positions as well as coughing or sneezing. Exam: afebrile, RRR, normotensive, normal resps, O2 sat 98% on RA, non-toxic, uncomfortable appearing. GENERAL: well developed, well nourished, appears stated age, walking and sitting uncomfortably in no acute distress. RESP: normal I:E, breathing non-labored, no accessory muscle use, clear to auscultation bilaterally, no wheezes, rhonchi, or rales. CARDIO: RRR, normal S1, S2, no murmurs, rubs, or gallops. MUSK: intervertebral space between L5-S1 TTP, otherwise no spinal or paraspinal tenderness or step offs, bilateral SI joints nontender, left upper buttocks TTP, +straight leg raise on the left, active ROM of spine limited due to pain, normal strength, muscle tone, no atrophy. NEURO: awake, alert, oriented x3, no focal neuro deficits, moving all extremities spontaneously, antalgic gait. DDx considered, but not limited to: sciatica - likely, has h/o this, +straight leg raise CE - unlikely, sxs unilateral, no numbess, weakness, or saddle anesthesia sacroilitis - less likely, SI joints nontender spinal abscess - unlikely, denies IVDU, afebrile, spine nontender low back strain - unlikely, denies injury, paraspinal muscles nontender vertebral fracture -unlikely, no vertebral tenderness Work up/Results: physical exam. Plan/Discussion: -acute on chronic sciatica -gave Toradol 15 mg IM in left deltoid aseptically on scene at 15:55, patient tolerated procedure well without complication -Rx sent for Naproxen 500 mg BID x7 day, first dose not until after midnight -No OTC NSAIDS while taking these medications -Avoid bed rest, no heavy lifting, twisting, or bending -keep PT referral as scheduled -f/u with PCP -call if sxs persist or worsen, can consider PO steroid if appropriate at that time [facility]. We cannot always find the exact cause of your symptoms during your initial visit. Please follow up with your primary care provider or specialist to be rechecked or seek medical attention if your symptoms do not go away or get worse. If you develop any new or worsening symptoms and need after hours care, please go to nearest ER and/or call 911. If you have additional concerns or develop a change in your condition between 8am-10pm, please call [facility] at [phone] to help navigate your care. In order to obtain further information and compare any laboratory results/values, I have accessed patient records on the [employer]. This information was pertinent in my medical decision making today. [email or web address] Not available 01/01/2021 16:31:43 01/09/2021 01/09/2021 Overview/History :T is a 50-year-old female that [place] for further evaluation regarding acute on chronic sciatic pain. She was given a prescription for naproxen. She has been taking the some of the time but has not had any in the past 24 hours. She is following with her primary care for her sciatic pain and has been referred to physical therapy. She just had her first intake session 2 days ago. She also believes she has a poison cammy rash after hiking near her home. Exam: On exam patient is awake and alert she is afebrile and hemodynamically stable. She is ambulating by her home with a steady gait. She does have red raised blister like rash on right forearm that does appear consistent with a poison cammy rash. She has skin patches on her left forearm as well. DDx considered, but not limited to:Back pain is most likely due to previously diagnosed acute on chronic sciatica back pain. Cauda equina unlikely at this time as patient denies saddle numbness or incontinence. Patient denies any recent trauma. Pinch nerve is also possible. The rash on forearms does appear consistent with poison cammy dermatitis. Contact dermatitis of other origin also considered. Work up/Results: Plan/Discussion:I discussed with the patient that she is presently receiving all appropriate treatments for her sciatic pain. I have advised that she resume her naproxen because that was helping somewhat and that she take it on a more regular schedule for at least the next 1-2 weeks. I have asked her to discuss with her physical therapist continuing treatment with her chiropractor. She does have an appointment there primary care next week. I have advised that she keep this in-person appointment and they can discuss the possibility of advanced imaging at that time. In regards to her rash. I did instruct her to parts picker some tecnu poison cammy wash from the pharmacy. I also discussed with her the oil from poison cammy can live on surfaces for over a year. I did remind her that when she goes to wash her linens and clothing that have already come in contact with the coils from her rash that she should wear gloves and wash linen in hot water. I also advised her to keep her rash areas covered if possible to resists the urge to itch and cause additional spread. I have also given her a prescription for topical hydrocortisone cream. I did let her know that if the rash were to spread or should begin to get blisters that she may need steroids at that time and she should contact [facility] or her PCP for reevaluation. In order to obtain further information and compare any laboratory results/values, I have accessed old patient records. This information was pertinent in my medical decision making today. Time On Scene with Patient: 00:32:51 [email or web address] Not available 01/09/2021 11:41:53 02/15/2021 02/15/2021 Overview/History : 1 week of cloudy malodorous urine. 3 weeks ago fell in bathroom onto right shoulder, continues to have pain with ABduction. Exam: WDWN non-toxic 50 yr old female VSS DDx considered, but not limited to: Urinary tract infection, doubtful for pyelonephritis no F/C/N/V o CVA tenderness. Right shoulder: DDx: Contusion, no ecchymosis, no edema, ROM is full with some tenderness on ABduction over the deltoid area. Doubtful for fracture, rotator cuff as rom is full, and strength is 5/5 Work up/Results: Urine dip positive for leukocytes, blood, 2+ ketones, 1+ protein right shoulder clinically evaluated Plan/Discussion: Non-toxic well appearing female with UTI, push fluids, begin Macrobid 100 mg BID x7 days call if any changes/concerns. your urine culture should be back in 2 days we will forward to your patient portal with any changes that may be necessary Go ahead and reach out to PT for your right shoulder. You have mentioned you already have a referral. Do ROM exercises as discussed. In order to obtain further information and compare any laboratory results/values, I have accessed . This information was pertinent in my medical decision making today. Proper Personal Protective Equipment (PPE), including gloves and masks were donned and doffed appropriately and all equipment cleaned using approved technique with germicidal disposable wipes prior to and after care of this patient according [facility]. Time On Scene with Patient: 00:32:53 [email or web address] Not available 02/15/2021 20:19:15 Plan of Treatment Reminders Order Date Submit Date Provider Last Modified By Organization Details Last Modified Time Details Appointments None recorded. Lab urinalysis , dipstick 2020 021 [facility], [address] [place] [address], [phone], 18:36:27 culture, urine 2020 YARELIS [facility] (Centralized Electronic Ordering - All Locations), Patient Can Go To The Location Of Their Choice, [id number] 13:08:09 Referral None recorded. Procedures None recorded. Surgeries None recorded. Imaging None recorded. Medication Orders Macrobid 100 mg capsule 2020 ATHENAFAX [facility] #[id number], [address] [place], [address], 18:40:07 hydrocorti sone 2.5 % topical cream 2020 DBA_PATCH_ [id number] [facility] #[id number], [address] [place], [address], 10:13:52 ketorolac 30 mg/mL (1 mL) injection solution 2020 [email or web address] [facility] #[id number], [address] [place], [address], 17:27:58 naproxen 500 mg tablet 2020 DBA_PATCH_ [id number] [facility] #[id number], [address] [place], [address], 10:13:52 Patient TargetsNo targets recorded. Patient Instructions Encounter Date Encounter Id Patient Instructions Last Modified By Organization Details Last Modified Time 01/09/2021 [id number] WE CAME TO SEE [facility] TODAY FOR CONCERNS OF ACUTE ON CHRONIC SCIATICA, YOU ARE ALREADY TAKING ANTI INFLAMMATORIES (NAPROXEN) , YOU ARE ALSO IN PHYSICAL THERAPY WHICH IS GREAT, PLEASE FOLLOW UP WITH PRIMARY CARE YOU ARE PLANNING TO TO DISCUSS POSSIBILTY OF ADVANCED IMAGING YOU ARE ALSO REPORTING A RASH FROM POINSON CAMMY, I RECCOMEND USING A MEDICATED POISON CAMMY WASH CALLED TECHNU- YOU CAN GET THIS AT ANY PHARMACY, THIS HELPS GET RID OF THE OIL WHICH IS WHAT CAUSES THIS TO SPREAD, I AM SENDING SOME HYDROCORTISONE CREAM TO THE PHARMACY FOR YOU- NO NEED FOR ORAL STEROIDS AT THIS TIME, IF THE RASH SPREADS OR YOU DEVELOPE BLISTERS IT FOLLOW UP WITH US OR YOUR PCP [facility]. We cannot always find the exact cause of your symptoms during your initial visit. Please follow up with your primary care provider or specialist as needed to be rechecked or seek medical attention if your symptoms do not go away or get worse. If you develop any new or worsening symptoms and need after hours care, please go to nearest ER and/or call 911. If you have additional concerns or develop a change in your condition between 8am-10pm, please call [facility] at [phone] to help navigate your care. [email or web address] Not available 01/09/2021 11:26:17 02/15/2021 [id number] shoulder stretches: exercises [email or web address] Not available 02/15/2021 18:36:30 shoulder pain: care instructions [email or web address] Not available 02/15/2021 18:36:32 shoulder sprain: care instructions [email or web address] Not available 02/15/2021 18:36:33 Female Urinary Tract Infection (UTI): Care Instructions [email or web address] Not available 02/15/2021 18:36:31 Please follow up with your primary care provider or specialist within 24-48 hours to be rechecked or seek medical attention if your symptoms do not go away or get worse. If you have additional concerns or develop a change in your condition between 8am-10pm, please call [facility] at [phone] to help navigate your care. Cross Tie Turner forward with your referral to PT [email or web address] Not available 02/15/2021 18:38:33 Reason for Referral None Reported. Results Created Date Observation Date Name Description Value Unit Range Abnormal Flag Note LastModifiedBy Organization Detail LastModifiedTime 02/16/2002/16/2021 URINE CULTU RE specimen description CLEAN CATCH (URINE ) Not Available [facility] (Centralized Electronic Ordering - All Locations) Patient Can Go To The Location Of Their Choice, [id number] 02/22/2021 13:07:15 02/16/20 21 02/16/2021 URINE CULTU RE special requests NONE Not Available [facility] (Centralized Electronic Ordering - All Locations) Patient Can Go To The Location Of Their Choice, 02/22/2021 13:07:15 02/16/2002/18/2021 URINE CULTU RE culture 50-100 ,000 COL/ML ESCHER ICHIA COLI abnormal Not Available [facility] (Centralized Electronic Ordering - All Locations) Patient Can Go To The Location Of Their Choice, 02/22/2021 13:07:15 02/16/2002/18/2021 URINE CULTU RE report status FINAL 2020 Not Available [facility] (Centralized Electronic Ordering - All Locations) Patient Can Go To The Location Of Their Choice, 02/22/2021 13:07:15 02/16/2002/18/2021 URINE CULTU RE organism ORGANI SM 50-100 ,000 COL/ML ESCHER ICHIA COLI Not Available [facility] (Centralized Electronic Ordering - All Locations) Patient Can Go To The Location Of Their Choice, 02/22/2021 13:07:15 02/16/2002/18/2021 URINE CULTU RE method METHOD MIN. INHIB. CONC. (MCG/M L) Not Available [facility] (Centralized Electronic Ordering - All Locations) Patient Can Go To The Location Of Their Choice, 02/22/2021 13:07:15 02/16/2002/18/2021 URINE CULTU RE ampicillin AMPICI LLIN SUSCEP TIBLE susceptib le Not Available [facility] (Centralized Electronic Ordering - All Locations) Patient Can Go To The Location Of Their Choice, 02/22/2021 13:07:15 02/16/2002/18/2021 URINE CULTU RE ampicillin/s ulbactam AMPICI LLIN/S ULBACT AM SUSCEP TIBLE susceptib le Not Available [facility] (Centralized Electronic Ordering - All Locations) Patient Can Go To The Location Of Their Choice, 02/22/2021 13:07:15 02/16/2002/18/2021 URINE CULTU RE amoxicillin/ clavulanic acid AMOXIC ILLIN/ CLAVUL AN SUSCEP TIBLE susceptib le Not Available [facility] (Centralized Electronic Ordering - All Locations) Patient Can Go To The Location Of Their Choice, 02/22/2021 13:07:15 02/16/20 21 02/18/2021 URINE CULTU RE cefazolin CEFAZO ALLEGRA SUSCEP TIBLE susceptib le Not Available [facility] (Centralized Electronic Ordering - All Locations) Patient Can Go To The Location Of Their Choice, 02/22/2021 13:07:15 02/16/2002/18/2021 URINE CULTU RE cefepime CEFEPI ME SUSCEP TIBLE susceptib le Not Available [facility] (Centralized Electronic Ordering - All Locations) Patient Can Go To The Location Of Their Choice, 02/22/2021 13:07:15 02/16/2002/18/2021 URINE CULTU RE ceftriaxone CEFTRI AXONE SUSCEP TIBLE susceptib le Not Available [facility] (Centralized Electronic Ordering - All Locations) Patient Can Go To The Location Of Their Choice, 02/22/2021 13:07:15 02/16/2002/18/2021 URINE CULTU RE ciprofloxaci n CIPROF LOXACI N RESIST ANT resistant Not Available [facility] (Centralized Electronic Ordering - All Locations) Patient Can Go To The Location Of Their Choice, 02/22/2021 13:07:15 02/16/2002/18/2021 URINE CULTU RE ertapenem ERTAPE NEM SUSCEP TIBLE susceptib le Not Available [facility] (Centralized Electronic Ordering - All Locations) Patient Can Go To The Location Of Their Choice, 02/22/2021 13:07:15 02/16/2002/18/2021 URINE CULTU RE gentamicin GENTAM ICIN SUSCEP TIBLE susceptib le Not Available [facility] (Centralized Electronic Ordering - All Locations) Patient Can Go To The Location Of Their Choice, 02/22/2021 13:07:15 02/16/2002/18/2021 URINE CULTU RE levofloxacin LEVOFL OXACIN RESIST ANT resistant Not Available [facility] (Centralized Electronic Ordering - All Locations) Patient Can Go To The Location Of Their Choice, 02/22/2021 13:07:15 02/16/2002/18/2021 URINE CULTU RE meropenem MEROPE NEM SUSCEP TIBLE susceptib le Not Available [facility] (Centralized Electronic Ordering - All Locations) Patient Can Go To The Location Of Their Choice, 02/22/2021 13:07:15 02/16/20 21 02/18/2021 URINE CULTU RE nitrofuranto in NITROF URANTO IN SUSCEP TIBLE susceptib le Not Available [facility] (Centralized Electronic Ordering - All Locations) Patient Can Go To The Location Of Their Choice, 02/22/2021 13:07:15 02/16/20 21 02/18/2021 URINE CULTU RE piperacillin /tazobactam PIPERA CILLIN /TAZOB AC SUSCEP TIBLE susceptib le Not Available [facility] (Centralized Electronic Ordering - All Locations) Patient Can Go To The Location Of Their Choice, 02/22/2021 13:07:15 02/16/20 21 02/18/2021 URINE CULTU RE trimeth/sulf amethox TRIMET H/SULF AMETHO X SUSCEP TIBLE susceptib le Not Available [facility] (Centralized Electronic Ordering - All Locations) Patient Can Go To The Location Of Their Choice, [id number] 02/22/2021 13:07:15 02/16/2002/18/2021 URINE CULTU RE tetracycline TETRAC YCLINE SUSCEP TIBLE susceptib le Not Available [facility] (Centralized Electronic Ordering - All Locations) Patient Can Go To The Location Of Their Choice, [id number] 02/22/2021 13:07:15 02/16/2002/15/2021 urina lysis , dipst ick Appearance cloudy Not Available [facility] [address] [place], [address], 02/15/2021 18:23:51 02/16/20 21 02/15/2021 urina lysis , dipst ick Color yellow Not Available [facility] [address] [place], [address], 02/15/2021 18:23:51 02/16/20 21 02/15/2021 urina lysis , dipst ick Glucose (ref: neg) Neg Not Available [facility] [address] [place], [address], 02/15/2021 18:23:51 02/16/20 21 02/15/2021 urina lysis , dipst ick Bilirubin (ref: neg) Neg Not Available [facility] [address] [place], [address], 02/15/2021 18:23:51 02/16/20 21 02/15/2021 urina lysis , dipst ick Ketones (ref: neg) ++ Not Available [facility] [address] [place], [address], 02/15/2021 18:23:51 02/16/20 21 02/15/2021 urina lysis , dipst ick Specific [place] (ref: 1.003 - 1.035) 1.025 Not Available [facility] [address] [place], [address], 02/15/2021 18:23:51 02/16/20 21 02/15/2021 urina lysis , dipst ick Blood (ref: neg) 5-10 Charles/uL Not Available [facility] [address] [place], [address], 02/15/2021 18:23:51 02/16/20 21 02/15/2021 urina lysis , dipst ick pH (ref: 5-7) 5.0 Not Available [place] [address] [place], [address], 02/15/2021 18:23:51 02/16/20 21 02/15/2021 urina lysis , dipst ick Protein (ref: neg) + Not Available [facility] [address] [place], [address], 02/15/2021 18:23:51 02/16/20 21 02/15/2021 urina lysis , dipst ick Urobilinogen (ref: 0.2) 0.2 Not Available [address] [place], [address], 02/15/2021 18:23:51 02/16/20 21 02/15/2021 urina lysis , dipst ick Nitrites (ref: neg) negati ve Not Available [place] [address] [place], [address], 02/15/2021 18:23:51 02/16/20 21 02/15/2021 urina lysis , dipst ick Leukocytes (ref: neg) ++ Not Available [facility] [address] [place], [address], 02/15/2021 18:23:51 02/16/2002/15/2021 urina lysis , dipst ick Location [facility] [address] [place] [address], [id number] Not Available [facility] - [address] [place], [address], 02/15/2021 18:23:51 Result Notes None recorded. Problems Name Problem SNOMED Code Status Onset Date Resolution Date Notes Provider Name and Address Organization Details Recorded Time Sciatica 30341510 Completed 202002/15/2021 VIPIN Mccoy [address] [place], [address], [place] [facility] 18:21:29 Problem Notes None recorded. Medical Equipment None Reported. Allergies No known drug allergies Medications Name Sig Start Date Stop Date Status Note LastModified by Organization Details LastModified Time venlafaxine ER 75 mg capsule,ext ended release 24 hr TAKE 1 CAPSULE BY MOUTH DAILY (TOTAL OF 225MG) active Not Available Not Available No t Available Concerta 18 mg tablet,exte nded release TAKE 1 TABLET BY MOUTH DAILY active Not Available Not Available No t Available tizanidine 4 mg tablet TAKE 1 TABLET BY MOUTH EVERY 8 HOURS. MAY CAUSE DROWSINES S active Not Available Not Available No t Available alendronate 70 mg tablet TAKE 1 TABLET BY MOUTH ONCE A WEEK active Not Available Not Available No t Available venlafaxine ER 150 mg capsule,ext ended release 24 hr 1 CAPSULE BY MOUTH DAILY WITH 75 MG FOR TOTAL OF 225 MG active Not Available Not Available No t Available Calcium Antacid 200 mg (as calcium carbonate 500 mg) chewable tablet CHEW AND SWALLOW ONE TABLET BY MOUTH TWICE A DAY active Not Available Not Available No t Available tramadol 50 mg tablet TAKE 1 TABLET BY MOUTH TWICE A DAY NEEDED active Not Available Not Available No t Available ketorolac 30 mg/mL (1 mL) injection solution gave 15 mg IM in left deltoid once on scene at 15:55 02/15 completed Not Available Not Available Not Available Macrobid 100 mg capsule Take 1 capsule every 12 hours by oral route as directed for 7 days. 2020 active Not Available Not Available Not Avai lable lorazepam 0.5 mg tablet TAKE 1 TABLET BY MOUTH TWICE A DAY active Not Available Not Available No t Available Lidoderm 5 % topical patch APPLY ONE PATCH TOPICALLY DAILY NEEDED FOR PAIN active Not Available Not Available No t Available ferrous sulfate 325 mg (65 mg iron) tablet TAKE 1 TABLET BY MOUTH ON SUN AND SUNDAY WITH VITAMIN C active Not Available Not Available No t Available calcipotrie ne 0.005 % topical cream APPLY TO AFFECTED AREA TWICE A DAY active Not Available Not Available No t Available gabapentin 300 mg capsule TAKE 2 CAPSULES BY MOUTH TWICE A DAY active Not Available Not Available No t Available Adderall XR 10 mg capsule,ext ended release TAKE 1 CAPSULE BY MOUTH EVERY MORNING active Not Available Not Available No t Available hydrocortis one 2.5 % topical cream APPLY A THIN LAYER TO THE AFFECTED AREA(S) BY TOPICAL ROUTE 2 TIMES PER DAY 02/15 completed Not Available Not Available Not Available zolpidem 5 mg tablet TAKE 1 TABLET BY MOUTH AT BEDTIME FOR SLEEP STUDY active Not Available Not Available No t Available gabapentin 100 mg capsule TAKE 1 CAPSULE BY MOUTH TWICE A DAY NEEDED FOR ANXIETY active Not Available Not Available No t Available lorazepam 1 mg tablet TAKE 1 TABLET BY MOUTH TWICE A DAY NEEDED FOR ANXIETY active Not Available Not Available No t Available naproxen 500 mg tablet Take 1 tablet twice a day by oral route with meals for 7 days. 02/15 completed Not Available Not Available Not Available oxycodone 5 mg tablet TAKE 1 TABLET BY MOUTH EVERY 6 HOURS FOR 7 DAYS active Not Available Not Available No t Available Concerta 27 mg tablet,exte nded release TAKE 1 TABLET BY MOUTH DAILY active Not Available Not Available No t Available 07/14 (21) 1 mg-20 mcg tablet TAKE 1 TABLET BY MOUTH EVERY DAY active Not Available Not Available No t Available tizanidine 6 mg capsule TAKE 1 CAPSULE BY MOUTH 3 TIMES A DAY active Not Available Not Available No t Available alendronate active Not Available Not A vailable Not Available lorazepam 02/15 completed Not Available Not Available Not Available ferrous sulfate active Not Available Not Available Not Available venlafaxine active Not Available Not A vailable Not Available Vitamin D3 active Not Available Not Av ailable Not Available aripiprazol e active Not Available Not Available Not Available aripiprazol e 2 mg tablet TAKE 1 TABLET BY MOUTH EVERY DAY active Not Available Not Available No t Available cholecalcif roman (vitamin D3) 50 mcg (2,000 unit) capsule TAKE 1 CAPSULE BY MOUTH EVERY DAY active Not Available Not Available No t Available [employer] At-Home COVID-19 Test kit USE ACCORDING TO MANUFACTU RERS DIRECTION S active Not Available Not Available No t Available Vitals Date Recorded Heart rate Oxygen saturation Respiratory rate Body temperature Systolic And Diastolic Provider Name and Address Organization Details Last Updated DateTime 1 88 /min 98 % 20 /min 97.4 [degF] 106/74 mm[Hg] Not Available [facility] 15:47:57 Date Recorded Oxygen saturation Heart rate Respiratory rate Body temperature Systolic And Diastolic Provider Name and Address Organization Details Last Updated DateTime 1 98 % 88 /min 18 /min 98.9 [degF] 110/64 mm[Hg] Not Available [facility] 11:16:11 Date Recorded Respiratory rate Body temperature Oxygen saturation Heart rate Systolic And Diastolic Provider Name and Address Organization Details Last Updated DateTime 1 18 /min 97 [degF] 95 % 101 /min 112/60 mm[Hg] Not Available [facility] [place] 18:17:21 Social History Question Answer Notes LastModified by Organizat ion Details LastModified Time Tobacco Smoking Status Never Smoker VIPIN WARD [address], [place], [address], [place] [facility] 01/01/2021 15:43:28 Do You Have An Advance Directive? No [facility] Information not available 01/01/2021 What Is Your Code Status? Full Code [facility] Information not available 01/01/2021 Excessive Alcohol Or Drug Use No [facility] Information not available 01/01/2021 Sex: Unknown Functional Status None recorded. Mental Status None recorded. Family History Relationship Description Onset Age of this Age Resolved Age Notes LastModified by Organization Details LastModified Time Mother Hypertensive disorder [email or web address] Not available 2020 15:44:07 Mother Alzheimer's disease jorge Not available 2020 15:44:13 Notes:mom has HTN Medical History Condition Response Diabetes N Coronary Artery Disease N Cancer N Stroke N Depression Y COPD N Asthma N High Cholesterol N Pulmonary Embolism N Hypertension N Kidney Disease N Gynecological HistoryNo gynecological history recorded. Obstetrics History GPAL:G 0 P 0 0 0 0 Past Encounters Encounter ID Performer Location Encounter Start Date Encounter Closed Date Diagnosis/Indication Diagnosis SNOMED-CT Code Diagnosis ICD10 Code Diagnosis IMO Codes Diagnosis Note [id number] [facility] [address] [place] [address] 01/01/2021 15:38:50 01/04/2021 13:20:26 Sciatica 56006347 M54.32 [id number] FAUSTINO RADER NP [facility] [address] [place] [address] 01/09/2021 11:09:06 01/13/2021 14:32:54 [facility] cammy 846161359 L25.5 Acute back pain with sciatica 375911786 M54.40 [id number] VIPIN Mccoy [facility] [address] [place] [address] 02/15/2021 17:23:59 02/16/2021 13:33:40 Increased frequency of urination 775517944 R35.0 1 week hx frequency, stable Strain of muscle of right shoulder 4100640611 0741611 S46.911A Tanja has good ROM, Health Concerns Section Related Observation LastModified by Organization Detai ls LastModified Time None Recorded Concern Status LastModified by Organization Details LastModified Time None Recorded Advance Directives Directive N: Payers Insurance Date Sequence Insurance Name Policy Number Policy Ruby Covered Member ID Ruby Member ID Guarantor Name 01/01/2021 1 *SELF PAY* Tanja Del Angel [id number] Tanja Del Angel 02/15/2021 1 [place] [facility] Tanja Del Angel [id number] Tanja Del Angel Notes Date Note Type Note Provider Name and Address Organization Details Recorded Time 01/01/2021 text/html 50 y/o F with PMHx sig for depression, anxiety, and [place], new to , who presents w/ c/o stabbing back pain. Patient reports left sided back/buttock pain started about 6 weeks ago and has been barely tolerable with Ibuprofen 800 mg. She reports worsening pain recently and now pain radiates down her left leg. She reports an old injury and has had 2 flare ups of sciatica in the past due to this. She states that usually it resolves with ibuprofen and time but pain is getting worse. Denies any new injury, heavy lifting, or twisting. She tried seeing a chiropractor 3 times and states it worsened after the last visit. Pain is worsened with certain positions as well as coughing or sneezing. [facility]IN [facility] [address] [place], [address], [place] [facility] 01/01/2021 16:32:11 01/09/2021 text/html This is a 50-year-old female that is known to [facility] new to this provider. She has a medical history significant for depression and anxiety. She also has a history of sciatica. She was evaluated by a different [facility] provider on January 01 for acute on chronic sciatica. At that time she was given a dose of IM Toradol and the naproxen prescription. The patient has also started physical therapy and her intake appointment 2 days ago. She continues to follow with the chiropractor who she says sometimes is helpful and sometimes it is not. The patient will be seeing her primary care provider next week, she is asking me about the need for advanced imaging such as an MRI. The patient tells me that she had been taking naproxen but then also tells me she never leaves she filled the prescription from [facility]. She is definitely not taken any naproxen in the past 24 hours. She tells me that the Toradol shot she was given did not help. She was wondering if [facility] had another shot of medication that might help to improve her pain. She is also reporting a poison cammy rash on her right forearm after [place]. He has tried no topical treatments for this. She denies any saddle numbness or incontinence. She is able to ambulate about her home with what appears to be a steady gait. FAUSTINO RADER NP [address], [place], [address], [place] [facility] 01/09/2021 16:18:42 02/15/2021 text/html About a week ago noted her urine was very concentrated and has had an odor. She tried to drink cranberry juice, no resolution. She cotinues to have frequency, no real dysuria. No F/CN/V, no flank pain.She also fell about 3 weeks ago injuring her right shoulder, fell in the bathroom. Has not gotten better. would like that checked. pain is worse with ABduction over the deltoid area. She otherwise has no pain with FROM. no weakness, no radiation of pain, no neck pain VIPIN Mccoy [address], [place], [address], [place] [facility] 02/15/2021 20:19:31 OBGyn Episode No OBEpisode recorded.
--- OUTSIDE RECORDS SUMMARY | 2025-06-08 06:07 | XMS_ITS | Data Portability ---
Author Organization [place] - [facility], Allergy Address [address] [place] [address] Care Team Providers Care Entry Examiner Name Role Phone EDMAR URIBE Primary Care Provider [phone] CECI HAWKINS Referring Provider [phone] Assessment Encounter Date Assessment Date Assessment LastModified by Organization Details LastModified Time 03/03/2024 03/03/2024 53 year old fema le with stable sensorineural hearing loss and bilateral tinnitus. Today we discussed the pathophysiology of tinnitus and the absence of consistently successful pharmacologic treatments for tinnitus. We discussed masking strategies to decrease awareness of the tinnitus, including using a white noise machine, music, or television.We discussed how exposure to loud noise can worsen tinnitus so I recommended hearing protection. We also discussed other ways to potentially help reduce awareness of tinnitus including avoidance of caffeine, salty meals and NSAIDs. I provided her with the name of the [employer] neil. Consistent use of her hearing aids does reduce her awareness of tinnitus. She has yearly audiometric testing at [facility]. She will follow up here on an as needed basis. [email or web address] Not available 03/03/2024 15:28:44 Plan of Treatment Reminders Order Date Submit Date Provider Last Modified By Organization Details Last Modified Time Details Appointments None record ed. Lab None record ed. Referral None record ed. Procedures None record ed. Surgeries None record ed. Imaging None record ed. Medication Orders None record ed. Patient TargetsNo targets recorded. Patient InstructionsNo instructions recorded. Reason for Referral None Reported. Results Created Date Observation Date Name Description Value Unit Range Abnormal Flag Note LastModifiedBy Organization Detail LastModifiedTime 02/13/20 24 11/22/2021 imagi ng/di agnos tic resul t No observ ation record ed. [email or web address] Not Available 18:10:07 02/13/20 24 05/03/2020 imagi ng/di agnos tic resul t No observ ation record ed. [email or web address] Not Available 18:10:23 02/13/20 24 06/02/2020 imagi ng/di agnos tic resul t No observ ation record ed. [email or web address] Not Available 18:10:24 02/13/20 24 06/02/2020 imagi ng/di agnos tic resul t No observ ation record ed. [email or web address] Not Available 18:10:30 02/13/20 24 11/22/2021 audio gram No observ ation record ed. [email or web address] Not Available 18:10:36 02/13/20 24 05/03/2020 audio gram No observ ation record ed. [email or web address] Not Available 18:10:41 03/03/20 24 01/11/2024 audio gram No observ ation record ed. [email or web address] Not Available 2023 15:22:05 Result Notes None recorded. Problems Name Problem SNOMED Code Status Onset Date Resolution Date Notes Provider Name and Address Organization Details Recorded Time Sensorine ural hearing loss of bilateral ears 986846618 Active 2015 Sensorine ural hearing loss, bilateral ; Note: Date Diagnosed : 6 4:13 PM (H90.3) Not Available [facility] 4 03:21:17 Bilateral tinnitus 24654302980 02 Active 2015 Tinnitus, bilateral ; Note: Date Diagnosed : 6 4:13 PM (H93.13) Not Available [facility] 4 03:21:17 Problem Notes None recorded. Medical Equipment None Reported. Allergies No known drug allergies Medications Name Sig Start Date Stop Date Status Note LastModified by Organization Details LastModified Time venlafaxine ER 37.5 mg capsule,ext ended release 24 hr TAKE 1 CAPSULE BY MOUTH EVERY DAY active Not Available Not Available No t Available prednisone 10 mg tablet PLEASE SEE ATTACHED FOR DETAILED DIRECTION S 03/03 completed Not Available Not Available Not Available venlafaxine ER 75 mg capsule,ext ended release 24 hr TAKE 1 CAPSULE BY MOUTH ONCE A DAY WITH 37.5 MG CAPSULE 03/03 completed Not Available Not Available Not Available trazodone 50 mg tablet TAKE 1/2 TO 1 TABLET AT NIGHT NEEDED FOR INSOMNIA 03/03 completed Not Available Not Available Not Available fluconazole 150 mg tablet TAKE 1 TABLET BY MOUTH NOW AND REPEAT 1 TABLET IN 3 DAYS 03/03 completed Not Available Not Available Not Available methylpheni date 5 mg tablet TAKE 1 TABLET BY MOUTH EVERY DAY 03/03 completed Not Available Not Available Not Available venlafaxine ER 150 mg capsule,ext ended release 24 hr TAKE 1 CAPSULE BY MOUTH DAILY WITH 1 OF THE 75MG CAPSULE FOR TOTAL DAILY DOSE OF 225MG 03/03 completed Not Available Not Available Not Available lamotrigine 25 mg tablet TAKE 1 TABLET BY MOUTH TWICE A DAY active Not Available Not Available No t Available lorazepam 0.5 mg tablet TAKE 1 TABLET BY MOUTH TWICE A DAY NEEDED FOR ANXIETY active Not Available Not Available No t Available ferrous sulfate 325 mg (65 mg iron) tablet TAKE 1 TABLET TWICE WEEKLY (MONDAYS AND FRIDAYS) MAY TAKE WITH FOOD TO MINIMIZE ABDOMINAL DISCOMFOR T active Not Available Not Available No t Available nystatin 100,000 unit/gram topical cream PLACE ON AFFECTED AREAS TWO TIMES DAILY UNTIL GONE 03/03 completed Not Available Not Available Not Available gabapentin 300 mg capsule TAKE 2 CAPSULES BY MOUTH TWICE A DAY 03/03 completed Not Available Not Available Not Available atomoxetine 40 mg capsule TAKE 1 CAPSULE BY MOUTH EVERY MORNING 03/03 completed Not Available Not Available Not Available atomoxetine 60 mg capsule TAKE 1 CAPSULE BY MOUTH EVERY DAY IN THE MORNING 03/03 completed Not Available Not Available Not Available 07/14 (21) 1 mg-20 mcg tablet TAKE 1 TABLET BY MOUTH EVERY DAY active Not Available Not Available No t Available nitrofurant oin monohydrate /macrocryst als 100 mg capsule TAKE 1 CAPSULE BY MOUTH TWICE A DAY FOR 5 DAYS 03/03 completed Not Available Not Available Not Available atomoxetine 80 mg capsule TAKE 1 CAPSULE BY MOUTH EVERY DAY IN THE MORNING active Not Available Not Available No t Available cholecalcif roman (vitamin D3) 50 mcg (2,000 unit) capsule TAKE 1 CAPSULE BY MOUTH EVERY DAY active Not Available Not Available No t Available Vitals Date Recorded Body height Body mass index (BMI) Body weight Provider Name and Address Organization Details Last Updated DateTime 03/03/2024 170.18 cm 20.4 kg/m2 11342.01 g Ignacia Mcknight [place] - [facility] 03/03/2024 14:59:07 Social History None recorded. Functional Status None recorded. Mental Status None recorded. Family History Nothing Reported. Medical History No medical history recorded. Gynecological HistoryNo gynecological history recorded. Obstetrics History GPAL:G 0 P 0 0 0 0 Past Encounters Encounter ID Performer Location Encounter Start Date Encounter Closed Date Diagnosis/Indication Diagnosis SNOMED-CT Code Diagnosis ICD10 Code Diagnosis IMO Codes Diagnosis Note [id number] MARGOT GANNON PA-C [facility] [address] [place] [address] 03/03/2024 14:53:02 03/03/2024 15:21:10 Sensorineural hearing loss of bilateral ears 291970506 H90.3 Bilateral tinnitus 67144 66428 102 H93.13 Health Concerns Section Related Observation LastModified by Organization Detai ls LastModified Time None Recorded Concern Status LastModified by Organization Details LastModified Time None Recorded Advance Directives Directive None Recorded Payers Insurance Date Sequence Insurance Name Policy Number Policy Ruby Covered Member ID Ruby Member ID Guarantor Name 03/03/2024 1 [facility] [id number] Lisa Del Angel [id number] Lisa Del Angel 03/03/2024 2 [place] [facility] [address] Lisa Del Angel [id number] Lisa Del Angel Notes Date Note Type Note Provider Name and Address Organization Details Recorded Time 03/03/2024 text/html ROS as noted in the HPI 53 year old female presents to the office for evaluation of her tinnitus. She describes it as a constant high pitched hum. She has noticed worsening tinnitus since the spring. This coincided with a time that she had allergies as well as some perimenopausal symptoms. She had audiometric testing done in December at [facility] which is stable compared to prior. She does have bilateral sensorineural hearing loss and does use hearing aids. in 2019 she had MRI IAC which was negative for retrocochlear pathology. She states that the tinnitus is markedly improved when she is using the hearing aids. GAVIN SMITH MD [address] [place] [address], [place], [address], [facility] - [facility] 03/03/2024 17:41:11 OBGyn Episode No OBEpisode recorded.
--- OUTSIDE RECORDS SUMMARY | 2025-06-08 06:07 | XMS_ITS | Patient Health Record ---
Author Organization [facility] Address [address] [place] [address] Support Name Relationship Address Phone DEMOND ROJAS Guarantor Unknown [phone] Reason For Referral No Information Medications Medication SIG (Take, Route, Fr equency, Duration) Notes Start Date End Date Status FLUoxetine HCl 40MG 1 ORAL daily; Duration: -3 Tom-MJ Active Naprosyn 250MG 1 ORAL twice daily; Duration: -3 Tom-MJ 04/18/2013 Active Problems Problem Type SNOMED Code ICD Code Onset Dates Problem Status W/U Status Risk Notes Problem Depressive disorder (77036504) Depressive disorder, not elsewhere classified (311) Active confirmed Major Problem 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
--- OUTSIDE RECORDS SUMMARY | 2025-06-08 06:08 | XMS_ITS | Patient Health Record ---
Author Organization [facility] [place] Address [address] [place] [address] Care Team Providers Care Commodities Broker Name Role Phone Quinn Pulido MD Primary Care Provider Unava ilbreonna Laina Joaquin Unavailable [phone] Allergies Allergen (clinical drug ingredient) Drug/Non Drug Allergy documented on EMR Reaction Allergy Type Onset Date Status pet danders (uncoded) Unknown Allergy Active Dust Mites Unknown Allergy Active Results Component Value Reference Range Notes X ray : Foot, right 3V Reviewed date:06/09/2024 12:12:41 PM Interpretation:See Examination above Performing Lab: Notes/Report: See Examination above Reason For Referral No Information Medications Medication SIG (Take, Route, Fr equency, Duration) Notes Start Date End Date Status Venlafaxine HCl Not- Taking Atomoxetine HCl Not- Taking 07/14 Active Vitamin D3 Active lamoTRIgine Active Social History Tobacco Use: Social History Observation Description Date Details (start date - stop date) Never Smoker NA - NA Tobacco use other than smoking: Question Answer Notes Are you an other tobacco user? No Tobacco Control (Standard) Question Answer Notes Tobacco use: Nonsmoker Additional Findings: Tobacco non-user Current no nsmoker AUDIT-C (Standard) Question Answer Notes Did you have a drink containing alcohol in the p ast year? No Points 0 Interpretation Negative Problems Problem Type SNOMED Code ICD Code Onset Dates Problem Status W/U Status Risk Notes Problem Acquired hammer toe of right foot (7155389292881747 ) Other hammer toe(s) (acquired), right foot (M20.41) Active confirmed Problem Acquired hammer toe of right foot (0800307208671475 ) Hammer toe of right foot (M20.41) Active confirmed Improvement Problem Acquired hammer toe of left foot (0458358456732260 ) Hammer toe of left foot (M20.42) Active confirmed Improvement Problem Spasm (05059571) Extensor tendon tightness, contracture (M62.40) Active confirmed Improvement Problem Localized, primary osteoarthritis of the ankle and/or foot (554526871) Arthritis of joint of lesser toe, right (M19.071) Active confirmed Vital Signs Blood pressure diastolic 70 mm Hg 09/29/2024 Height 5ft 7in in 09/29/2024 Blood pressure systolic 120 mm Hg 09/29/2024 Weight 140 lbs 09/29/2024 BMI 21.92 kg/m2 09/29/2024 Procedures Procedure Date Ordered Date Performed Result Body Sit e 79581 - Tenotomy, open flexor 09/22/2024 N/A Encounters Encounter Location Date Provider Diagnosis [address] [address] 06/09/2024 Laina Black Pain in right toe(s) M79.674 ; Other hammer toe(s) (acquired), right foot M20.41 ; Arthritis of joint of lesser toe, right M19.071 ; Subluxation of metatarsophalangeal joint of toe, initial encounter S93.149A and Mallet toe of right foot M20.5X1 [address] [address] 09/22/2024 Laina Black Hammer toe of right foot M20.[address] [address] 09/29/2024 Laina Black Hammer toe of right foot M20.[address] [address] 06/09/2024 Laina Black Assessments Encounter Date Diagnosis (ICD Code) Assessment Notes Treatment Notes Treatment Clinical Notes Section Notes 06/09/2024 Pain in right toe(s) (ICD-10 - M79.674) 06/09/2024 Other hammer toe(s) (acquired), right foot (ICD-10 - M20.41) 09/22/2024 Hammer toe of right foot (ICD-10 - M20.41) 09/29/2024 Hammer toe of right foot (ICD-10 - M20.41) Improvement 06/09/2024 Arthritis of joint o f lesser toe, right (ICD-10 - M19.071) 06/09/2024 Subluxation of metatarsophalangeal joint of toe, initial encounter (ICD-10 - S93.149A) 06/09/2024 Mallet toe of right foot (ICD-10 - M20.5X1) Plan Of Treatment Pending Test Test Name Order Date - Tenotomy, open flexor 09/22/2024 Insurance Providers Payer Name Payer Address Payer Phone Subscriber Number Group Number Insured Name Patient Relationship to Insured Coverage Start Date Coverage End Date [facility] [address] [facility] [place] [address] [phone] [id number] Olga Del Angel Self - patient is the insured 3 Medical (General) History Medical History History ICD Code Anxiety Headaches/Migraines Sciatica Chicken pox Tinnitus Noise-Induced Hearing Loss Surgical History Surgery Date(Month/Year) L4 - L5 disectomy 04/2021 emeterio 2011 L4 - L5 laminectomy 03/2022
--- OUTSIDE RECORDS SUMMARY | 2025-06-08 06:08 | XMS_ITS | Clinical Summary ---
Author Organization [facility] Address [address] [place] [phone] Phone Care Team Providers Care Sales Lead Generator Name Role Phone Kathie Novak NP Primary Care Provide r Allergies No known active allergies Social History Tobacco Use Types Packs/Day Years Used Date Smoking Tobacco: Never Assessed Education Answer Date Recorded Are you interested in more education? Not on radha e 10/20/2022 Are you concerned about learning? Not on file 10/20/2022 No 10/20/2022 No 10/20/2022 Digital Access Answer Date Recorded No 2022 No 2022 Reliable internet access at home? Not on file 2022 Device with a working camera? Not on file Comments Unknown Sex and Gender Information Value Date Recorded Sex Assigned at Not on file Legal Sex Female 10:40 AM EST Gender Identity Female 06/01/2020 11:07 PM EST Sexual Orientation Straight 06/01/2020 11 :07 PM EST Last Filed Vital Signs Vital Sign Reading Time Taken Comments Blood Pressure - - Pulse - - Temperature - - Respiratory Rate - - Oxygen Saturation - - Inhaled Oxygen Concentration - - Weight 56.7 kg (125 lb) 05/27/2020 5:28 PM EST Height 170.2 cm (5' 7 ) 05/27/2020 5:28 PM EST Body Mass Index 19.58 05/27/2020 5:28 PM EST Plan of Treatment Not on file Medical Devices Not on file Insurance [facility] [place] [phone] [facility] Care Teams Sales Lead Generator Relationship Specialty Start Date End Date Kathie Novak NP [facility] [place] [address] PCP - General Family Medicine 05/27/20 Additional Source Comments The information contained in this document represents components of the legal health record. It is not the complete legal health record.[facility]
--- NOTE | 2025-06-08 06:12 | ED.GENADULT ---
HPI - General Adult General Chief complaint: Fall Stated complaint: abd pain, fall after syncope Time Seen by Provider: 06/08/25 06:11 Source: patient Mode of arrival: ambulatory Limitations: no limitations History of Present Illness ED Provider: Dr. Guillaume [facility] narrative: This is a 54-year-old female presented hospital today after having urinary urgency. Patient stated she is unable to void. Patient woke up in the middle night. She states she passed out and struck the left posterior thorax on the bathtub. Denies any head injury. She is having some minor pain in the left posterior chest. She is also having some bladder pain. The patient is concerned she may have a UTI. Related Data Home Medications ?Medication ?Instructions ?Recorded ?Confirmed ferrous sulfate 325 mg (65 mg 325 mg PO 2XW 06/23/21 06/23/21 iron) tablet gabapentin 300 mg capsule 600 mg PO BID 06/23/21 06/23/21 lidocaine 5 % topical patch 1 patch topical DAILY 06/23/21 06/23/21 lorazepam 0.5 mg tablet 0.5 tab PO BID PRN Anxiety 06/23/21 07/14/21 norethindrone acetate 1 mg-ethinyl 1 tab PO DAILY 06/23/21 06/23/21 estradiol 20 mcg tablet (Junel) venlafaxine 75 mg capsule,extended 150 mg PO DAILY 06/23/21 07/14/21 release 24 hr cholecalciferol (vitamin D3) 50 50 mcg PO DAILY 07/14/21 07/14/21 mcg (2,000 unit) capsule (Vitamin D3) Previous Rx's ?Medication ?Instructions ?Recorded calcium carbonate (Calcium 500) 500 mg PO BID 90 days #180 tabs 07/07/21 tramadol 50 mg tablet 50 - 100 mg (1 - 2 x 50 mg) PO Q4H 02/08/22 PRN pain #20 tabs tramadol 50 mg tablet 50 - 100 mg (1 - 2 x 50 mg) PO Q4H 02/08/22 PRN pain #20 tabs cyclobenzaprine 10 mg tablet 10 mg PO TID PRN muscle spasm 5 02/09/22 days #15 tabs ketorolac 10 mg tablet 10 mg PO QID 5 days #20 tabs 02/09/22 prednisone 20 mg tablet 60 mg (3 x 20 mg) PO DAILY 5 days 02/09/22 #15 tabs cephalexin 500 mg capsule 500 mg PO Q8H 7 days #21 caps 06/08/25 cyclobenzaprine 5 mg tablet 5 mg PO TID PRN muscle spasm #14 06/08/25 tabs Allergies Allergy/AdvReac Type Severity Reaction Status Date / Time No Known Allergies Allergy Verified 06/08/25 05:11 Review of Systems Review of Systems: Pertinent review of systems as mentioned in HPI. All other system otherwise negative. [facility] Past Medical History PMF Narrative: Medical history as mentioned in HPI Medical History Anxiety Depression Fibroids History of iron deficiency Hypercholesteremia Hypotension Migraine Osteoporosis Sensorineural hearing loss, unspecified Surgical History History of endometrial ablation Hx of LASIK Social History Social History Household Members: None Household Members Other:: N/A Patient Tobacco Use Status: Former Tobacco user Tobacco use type: Cigarette Advance Directives: No Advance Directives Information Provided: No Physical Exam ED Exam Exam: General: Pleasant, no distress, interacting appropriately Head: Normacephalic, atraumatic ENT: oral mucosa moist, neck supple, no tracheal deviation Cardiovascular: regular rate, regular rhythm, no murmurs, rubbing, gallops, left posterior chest pain on palpation, no midline thoracic tenderness on palpation Respiratory: CTAB, no wheeze, rales, rhonchi Gastrointestinal: Soft, non distended, non tender, non guarding Skin: Warm and dry Psychiatric: Appropriate mood and thoughts Vital Signs: Vital Signs - 24 hr 06/08/25 05:04 06/08/25 08:25 Temperature 97.6 F Pulse Rate 68 110 H Respiratory Rate 16 16 Blood Pressure 108/45 L 142/57 H Pulse Oximetry 97 98 Oxygen Delivery Method Room Air Room Air BMI result Body Mass Index 23.7 Medications Administered Generic Name Dose Route Start Last Admin Trade Name Freq PRN Reason Stop Dose Admin Lactated Ringer's 1,000 mls @ 999 mls/hr 06/08/25 08:30 06/08/25 08:27 Lr IV 06/08/25 09:30 999 mls/hr .Q1H1M [place] Administration Discontinued Medications Generic Name Dose Route Start Last Admin Trade Name Pedro PRN Reason Stop Dose Admin Acetaminophen 975 mg 06/08/25 06:55 06/08/25 07:18 Acetaminophen 325 Mg Tablet PO 06/08/25 06:56 975 mg ONCE ONE Administration Lactated Ringer's 1,000 mls @ 999 mls/hr 06/08/25 07:00 06/08/25 08:25 Lr IV 06/08/25 08:00 Infused .Q1H1M CHARLETTE Infusion Lidocaine 1 patch 06/08/25 06:56 06/08/25 07:19 Lidocaine 4 % Patch Adh..Patch TRANSDERMA 06/08/25 06:57 1 patch ONCE ONE Administration Protocol Medical Decision Making Medical Decision Making [facility] Narrative: This is a 54-year-old female presented hospital today for increased urinary frequency trouble voiding. Also left posterior thorax pain from falling. Discussed workup for the patient for her syncope and fall and evaluate for pneumothorax or rib fracture however patient is refusing the workup at this time. Patient will just like to have her urine assess. For any signs of UTI. Patient's has bilateral breath sounds. Low suspicion for pneumothorax does not appear to be in acute respiratory distress. We will give patient some IV fluid. An assess her UA for UTI. UA does show signs of UTI. A dose of Keflex will be given here. We will plan to discharge patient with a course of Keflex to take. Flexeril will be prescribed for her muscular pain of her back. She is agreeable to this plan. Return precautions provided for worsening infection. Patient will be discharged. Differential Diagnosis Differential Diagnoses: The differential diagnosis associated with the presentation includes UTI, dysuria, posterior thorax pain. Lab Data [facility] Lab Attestation statement: I reviewed the patient's lab results. Labs: Lab Results 06/08/25 Range/Units 08:28 Urine Color Yellow Urine Appearance Cloudy Urine pH 7.0 (5.0-9.0) Ur Specific [place] <= 1.005 (1.005-1.025) Urine Protein Negative (Neg-Trace) mg/dL Urine Glucose (UA) Negative (Negative) mg/dL Urine Ketones Trace (Negative) mg/dL Urine Blood Moderate (2+) H (Negative) Urine Nitrite Positive H (Negative) Ur Leukocyte Esterase Large (3+) H (Negative) Discharge Plan Discharge Clinical Impression: UTI (urinary tract infection) Qualifiers: Urinary tract infection type: site unspecified Hematuria presence: without hematuria Qualified Code(s): N39.0 - Urinary tract infection, site not specified Patient Disposition: Home, Self-Care Instructions: Urinary Tract Infection in Women (ED) Prescriptions: New cephalexin 500 mg capsule 500 mg PO Q8H 7 Days Qty: 21 0RF No Action ferrous sulfate 325 mg (65 mg iron) tablet 325 mg PO 2XW Rx Instructions: Take on Sunday and Sunday. Take with Vitamin C gabapentin 300 mg capsule 600 mg PO BID Rx Instructions: Take two 300 mg tabs norethindrone ac-eth estradiol [07/14 ()] 1-20 mg-mcg tablet 1 tab PO DAILY lidocaine 5 % adhesive patch,medicated 1 patch topical DAILY lorazepam 0.5 mg tablet 0.5 tab PO BID PRN (Reason: Anxiety) Rx Instructions: Patient stated she is tapering off Lorazepam. Currently taking 0.5 mg BID. When finished with that prescription she will start taking 0.5 mg Daily. venlafaxine 75 mg capsule,extended release 24hr 150 mg PO DAILY Rx Instructions: Patient stated she takes 2 tabs daily for a total dose of 150 mg daily. calcium carbonate [Calcium 500] 500 mg calcium (1,250 mg) tablet,chewable 500 mg PO BID 90 Days Qty: 180 0RF cholecalciferol (vitamin D3) [Vitamin D3] 50 mcg (2,000 unit) Capsule 50 mcg PO DAILY tramadol 50 mg tablet 50 - 100 mg PO Q4H PRN (Reason: pain) Qty: 20 0RF tramadol 50 mg tablet 50 - 100 mg PO Q4H PRN (Reason: pain) Qty: 20 0RF ketorolac 10 mg tablet 10 mg PO QID 5 Days Qty: 20 0RF Rx Instructions: Patient received 30mg IM toradol in the ED prednisone 20 mg tablet 60 mg PO DAILY 5 Days Qty: 15 0RF cyclobenzaprine 10 mg tablet 10 mg PO TID PRN (Reason: muscle spasm) 5 Days Qty: 15 0RF Rx Instructions: side effect is drowsiness. Do not at work or while driving. Print Language: Bulgarian
[2025-06-08] MEDS: Lactated Ringers 1,000 ML 999 ML IV ×2 (07:16→08:27)
[2025-06-08] MEDS: Lidocaine 4 % Patch ADH..PATCH 1 PATCH TRANSDERMA (07:19)
[2025-06-08 08:25] VITALS: BP 142/57; PULSE 110; RESP 16; O2SAT 98
[2025-06-08 08:34] LABS: Appearance Urine Cloudy; Glucose Urine UA Negative (Negative); PH 7.0 (5.0-9.0); Specific Gravity - Urine <= 1.005 (1.005-1.025); UMIC TRIGGER UA YES
[2025-06-08 09:06] VITALS: BP 142/57; PULSE 68; RESP 16; TEMP 36.4; O2SAT 98
== END 2025-06-08 09:07 | disposition home or self-care (01) ==
PROVIDERS: Emergency Provider Student in an Organized Health Care Education/Training Program; PCP Physician Assistant Medical
DX: N39.0 Urinary tract infection, site not specified (principal)
CPT/HCPCS: 81001; 96360; 96361; 99284; 99285; J7120